=== PATIENT | female | born 1975 | race Two or more races ===

== ENCOUNTER → 2022-12-14 | Outpatient (CLI) | payer OTHER ==
--- NOTE | 2022-12-14 14:03 | USB ---
Risk Values: Carole 5 year model risk: 0.6%. NCI Lifetime model risk: 6.3%. Findings: The whole breast of both breasts, the axilla of both breasts and the retroareolar of both breasts were scanned. A complete US of all four quadrants of the bilateral breasts including axillary and retro-areolar region were reviewed. Prominent ducts posterior to the right nipple are seen. There are 2 adjacent round to oval hypoechoic roughly 6 mm lesions at 11:00 position 1 cm distance from nipple. No vascularity is present. Prominent but benign-appearing bilateral axillary lymph nodes are seen. No concerning solid or cystic mass in the left breast. Overall Assessment: Incomplete: need additional imaging evaluation, BI-RAD 0 Management: Diagnostic Mammogram of both breasts. Bilateral breast mammogram for correlation. Patient is overdue, last mammogram over 3 years ago. When mammogram gets down and old mammogram is compared, better assessment of right breast 2 adjacent small lesions on ultrasound can be performed. Electronically signed and approved by: Homar Licea M.D.
== END | disposition home or self-care (01) ==
LOC: RADUSWWP 13:00
PROVIDERS: ATTEND Family Medicine
DX: N64.4 Mastodynia (principal)